=== PATIENT | male | born 1990 | race Two or more races ===

== ENCOUNTER 2025-06-03 16:20 | Emergency (ER) | payer OTHER ==
[~2025-06-03] VITALS: Ht 167.6 cm; Wt 93.4 kg
[2025-06-03 16:45] VITALS: BP 167/84; TEMP 98.1; O2SAT 97
== END 2025-06-03 18:04 | disposition home or self-care (01) ==
LOC: ER 16:28
DX: S93.502A Unspecified sprain of left great toe, initial encounter (principal); X58.XXXA Exposure to other specified factors, initial encounter; Y93.89 Activity, other specified; Y92.89 Other specified places as the place of occurrence of the external cause; Y99.9 Unspecified external cause status
CPT/HCPCS: 73630-TC